=== PATIENT | female | born 2000 | race Caucasian/White ===

== ENCOUNTER 2021-06-01 13:47 | Emergency (ER) | payer MEDICAID ==
[~2021-06-01] VITALS: Ht 162.6 cm; Wt 109.9 kg
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
[2021-06-01] MEDS ORDERED: oxyCODONE/APAP 5/325 1 TAB TABLET PO ONE (15:00)
[2021-06-01 15:14] LABS: BILIRUBIN,URINE NEGATIVE (NEG); CLARITY,URINE CLEAR; COLOR,URINE YELLOW; NITRITE,URINE NEGATIVE (NEG); PROTEIN,URINE NEGATIVE (NEG-TRACE); UROBILINOGEN,URINE 0.2 mg/dL (0.2 mg/dL)
[2021-06-01 15:25] LABS: BACTERIA,URINE MODERATE /HPF (0-FEW)
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
[2021-06-01] MEDS ORDERED: HYDR-2761 PO (17:33)
[2021-06-01 17:38] VITALS: BP 139/66
== END 2021-06-01 17:43 | disposition home or self-care (01) ==
LOC: ER 13:47
DX: M54.5 Low back pain (principal); R51.9 Headache, unspecified; M54.2 Cervicalgia; M54.6 Pain in thoracic spine; M25.511 Pain in right shoulder; M25.571 Pain in right ankle and joints of right foot; G89.29 Other chronic pain
CPT/HCPCS: 70450; 71046; 71120; 72125; 72128; 72131; 81001; 81025; 87086; 99285-25